=== PATIENT | female | born 1995 | race Two or more races ===

== ENCOUNTER 2018-02-27 10:40 | Emergency (ER) | payer OTHER ==
[~2018-02-27] VITALS: Ht 170.2 cm; Wt 63.5 kg
[2018-02-27] MEDS ORDERED: NORFLEX100MG PO (13:20)
[2018-02-27] MEDS ORDERED: KETO10TA2 PO (13:20)
== END 2018-02-27 13:26 | disposition home or self-care (01) ==
LOC: ER 10:40
DX: M54.2 Cervicalgia (principal)

== ENCOUNTER 2021-10-26 17:08 | Emergency (ER) | payer OTHER ==
[~2021-10-26] VITALS: Ht 172.7 cm; Wt 64.4 kg
[~2021-10-26 17:08] MED LIST: KETO10TA2 PO; NORFLEX100MG PO
== END 2021-10-26 18:57 | disposition home or self-care (01) ==
LOC: ER 17:08
DX: S49.82XA Other specified injuries of left shoulder and upper arm, initial encounter (principal); Y93.B9 Activity, other involving muscle strengthening exercises; Y92.89 Other specified places as the place of occurrence of the external cause; M25.512 Pain in left shoulder

== ENCOUNTER 2024-02-13 10:42 | Emergency (ER) | payer OTHER ==
[~2024-02-13] VITALS: Ht 172.7 cm; Wt 64.0 kg
== END 2024-02-13 14:24 | disposition home or self-care (01) ==
LOC: ER 10:44
DX: S60.00XA Contusion of unspecified finger without damage to nail, initial encounter (principal); X58.XXXA Exposure to other specified factors, initial encounter; Y93.9 Activity, unspecified; Y92.9 Unspecified place or not applicable; Y99.9 Unspecified external cause status

== ENCOUNTER 2024-11-06 16:32 | Outpatient (CLI) | payer OTHER | END 2024-11-06 17:07 | disposition home or self-care (01) | LOC: NST 16:32 | PROVIDERS: ATTEND Obstetrics & Gynecology | DX: Z34.83 Encounter for supervision of other normal pregnancy, third trimester (principal) ==

== ENCOUNTER 2024-11-29 15:00 | Inpatient (IN) | payer OTHER ==
[~2024-11-29] VITALS: Ht 172.7 cm; Wt 78.0 kg
[2024-12-03 15:39] VITALS: BP 113/76
[2024-12-03 15:54] LABS: BASO % 0.2 % (0.1-1.2); EOS # 0.02 (0.04-0.54); EOS % 0.2 % (0.7-7.0); LYMPH # 1.75 (1.18-3.74); LYMPH % 14.9 % (19.3-53.1); MEAN PLATELET VOLUME 10.70 fl (9.4-12.4); MONO # 0.55 (0.24-0.82); MONO % 4.7 % (4.7-12.5); NEUT # 9.38 (1.56-6.13); NEUT % 79.7 % (34.0-71.1); RED CELL DISTRIBUTION WIDTH 12.6 % (11.6-14.4)
[2024-12-03] MEDS ORDERED: MISOPROSTOL 25 MCG TABLET VAG ONE (16:15)
[2024-12-03] MEDS ORDERED: RINGERS SOLUTION,LACTATED 1,000 ML IV SCH (16:15)
[2024-12-03 16:19] LABS: ALT/SGPT 19.0 U/L (12-78); AST/SGOT 19.0 U/L (15-37); BILIRUBIN TOTAL 0.22 mg/dL (0.3-1.2); BUN CREA RATIO 19.0 (7.0-25.0); CREATININE SERUM 0.67 mg/dL (0.55-1.02); GFR 104.06; GLOBULINA 3.5 G/DL (2.4-3.5); GLUCOSE FASTING 97.0 mg/dL (65-100); OSMOLALITY SERUM 276.0 MOSM/KG (275-295)
[2024-12-03 16:20] LABS: INR < 0.93
[2024-12-03 19:28] VITALS: BP 126/69
[2024-12-03 23:21] VITALS: BP 117/73
[2024-12-04] VITALS (9 sets, daily range): BP systolic 87–135; BP diastolic 50–70
[2024-12-04] MEDS ORDERED: MORPHINE SULFATE 4 MG/ML CARTRIDGE IV ONE (01:45)
[2024-12-04] MEDS ORDERED: LIDOCAINE HCL 1% 10ML VIAL IJ ONE (04:25)
[2024-12-04] MEDS ORDERED: ERYTHROMYCIN BASE OPHT 1GM EACH TUBE OP ONE (04:40)
[2024-12-04] MEDS ORDERED: CHLORHEXIDINE GLUCONATE 120 ML BOTTLE TOP SCH (05:00)
[2024-12-04] MEDS ORDERED: OXYTOCIN 1,000 ML IV SCH (05:00)
[2024-12-04] MEDS ORDERED: KETOROLAC TROMETHAMINE 10 MG TABLET PO SCH (06:00)
[2024-12-04] MEDS ORDERED: OxyCODONE HCL 5 MG TABLET (ROXICODONE) PO SCH (08:00)
[2024-12-04] MEDS ORDERED: PNV,CALCIUM 72/IRON/FOLIC ACID 1 TAB TABLET PO SCH (09:00)
[2024-12-05 02:30] VITALS: BP 100/60
[2024-12-05 08:00] VITALS: BP 114/67
[2024-12-05] MEDS ORDERED: DOCUSATE SODIUM 100MG CAP PO SCH (09:00)
[2024-12-05 16:47] VITALS: BP 101/61
[2024-12-06 03:11] VITALS: BP 121/73
[2024-12-06 09:04] VITALS: BP 110/62
== END 2024-12-06 15:27 | disposition home or self-care (01) | DRG 807 ==
LOC: OB/GYN 11-30 15:00 → LDR 12-03 15:26 → OB/GYN 12-04 05:58
PROVIDERS: ADMIT Obstetrics & Gynecology; ATTEND Obstetrics & Gynecology
PROC: 3E0P7VZ Introduction of Hormone into Female Reproductive, Via Natural or Artificial Opening (ICD-10-PCS; 2024-12-03)
PROC: 4A1HXCZ Monitoring of Products of Conception, Cardiac Rate, External Approach (ICD-10-PCS; 2024-12-03)
PROC: 10E0XZZ Delivery of Products of Conception, External Approach (ICD-10-PCS; principal; 2024-12-04)
PROC: 0KQM0ZZ Repair Perineum Muscle, Open Approach (ICD-10-PCS; 2024-12-04)
PROC: 3E033VJ Introduction of Other Hormone into Peripheral Vein, Percutaneous Approach (ICD-10-PCS; 2024-12-04)
PROC: 0W8NXZZ Division of Female Perineum, External Approach (ICD-10-PCS; 2024-12-04)
DX: O70.1 Second degree perineal laceration during delivery (principal); Z37.0 Single live birth; Z3A.40 40 weeks gestation of pregnancy

== ENCOUNTER 2024-12-02 14:42 | Outpatient (CLI) | payer OTHER | END 2024-12-02 15:59 | disposition home or self-care (01) | LOC: NST 14:42 | PROVIDERS: ATTEND Obstetrics & Gynecology | DX: Z34.83 Encounter for supervision of other normal pregnancy, third trimester (principal) ==

== ENCOUNTER 2025-01-04 16:33 | Emergency (ER) | payer OTHER ==
[~2025-01-04] VITALS: Ht 172.7 cm; Wt 67.1 kg
[2025-01-04] MEDS ORDERED: AUGMENTIN125 MG/5 M PO (16:58)
[2025-01-04] MEDS ORDERED: CLINDAMYCIN PHOSPHATE 150 MG/ML (600mg) IM STA (19:06)
== END 2025-01-04 19:43 | disposition home or self-care (01) ==
LOC: ER 16:33
DX: O91.23 Nonpurulent mastitis associated with lactation (principal); R50.9 Fever, unspecified